=== PATIENT | female | born 1940 | race Caucasian/White ===

== ENCOUNTER 2016-08-12 02:59 | Inpatient (IN) | payer MEDICAID, MEDICARE ==
[~2016-08-12] VITALS: Ht 170.2 cm; Wt 84.8 kg
[2016-08-12 03:20] VITALS: BP_SYST 103; BP_SYST 107; BP_DIAS 47; BP_DIAS 48
--- NOTE | 2016-08-12 03:20 | NUR ---
RN NOTES RECEIVED PT FROM [facility] VIA STRETCHER ACCOMPANIED BY 3 PRN AMBULANCE CREW. PT ABLE TO AMBULATE FROM OUTSIDE THE ROOM TO THE PT'S BED SAFELY. PT IS A/O X 3. OCCITAN SPEAKING BUT ABLE TO SPEAK AND UNDERSTAND A LITTLE BIT OF MONTENEGRIN. PT WITH NO DISTRESS, NO SOB NOTED. RESPIRATION IS EVEN AND UNLABORED. WITH EVEN SMILE, NO FACIAL DROOPING NOTED AT THIS TIME, ABLE TO RAISE BOTH ARMS WITHOUT DIFFICULTY. NO SLURRED SPEECH NOTED. DENIES ANY BLURRED VISION AT THIS TIME. IV SITE ON LAC INTACT AND PATENT. NO S/S OF INFILTRATION NOTED. ALL NEEDS ATTENDED AND MET KEPT COMFORTABLE. CALL LIGHT WITHIN REACH, BODY ASSESSMENT LIBBY, SKIN IS INTACT. SAFETY PRECAUTIONS OBSERVED. WILL CONT TO MONITOR.
--- NOTE | 2016-08-12 03:45 | NUR ---
PLACED A CALL TO DR. SARATH MD AWARE THAT PT IS IN THE FLOOR ALREADY AND MED RECON DONE, STILL AWAITING FOR ADMISSION ORDERS.
[2016-08-12] MEDS ORDERED: SIMV10TA6 PO (03:58)
[2016-08-12] MEDS ORDERED: ASPI-605 PO (03:58)
[2016-08-12] MEDS ORDERED: POLY17PO20 PO (03:58)
[2016-08-12] MEDS ORDERED: ATEN25TA PO (03:58)
[2016-08-12] MEDS ORDERED: MAG355OR44 PO (03:58)
[2016-08-12] MEDS ORDERED: OMEP40CA37 PO (03:58)
[2016-08-12] MEDS ORDERED: SITA50TA PO (03:58)
[2016-08-12] MEDS ORDERED: METF500T3 PO (03:58)
[2016-08-12] MEDS ORDERED: DICL75TA5 PO (03:58)
[2016-08-12] MEDS ORDERED: ALBU6.7H INH (03:58)
[2016-08-12] MEDS ORDERED: RANI150T12 PO (03:58)
--- NOTE | 2016-08-12 05:00 | NUR ---
FF UP WITH DR. CLEMENS REGARDING THE ADMISSION ORDERS , PER MD HE'LL DO THE ORDERS.
[2016-08-12] MEDS ORDERED: ENOXAPARIN SODIUM 40 MG/0.4 ML DISP.SYRIN SQ SCH (07:00)
[2016-08-12] MEDS ORDERED: HYDROCODONE/APAP 5/325MG 1 EACH TABLET PO PRN (07:00)
[2016-08-12] MEDS ORDERED: MAG HYDROX/AL HYDROX/SIMETH 30 ML UDC PO PRN (07:00)
[2016-08-12] MEDS ORDERED: DEXTROSE 50%-WATER 50 ML DISP.SYRIN IV PRN (07:00)
[2016-08-12 07:09] VITALS: BP 121/60
--- NOTE | 2016-08-12 07:20 | NUR ---
BELT PICKER NOTES PT IN BED, RESTING COMFORTABLY AT THIS TIME, NO DISTRESS, NO SOB NOTED. A/O X2 VERBALLY RESPONSIVE. NO FACIAL DROOP, WITH EVEN SMILE AT THIS TIME. NO CHANGES SINCE PT CAME. DENIES ANY CHEST PAIN OR ANY PAIN AT THIS TIME. NO S/S OF HYPOGLYCEMIA NOTED. ALL NEEDS ATTENDED AND MET . KEPT COMFORTABLE. SAFETY PRECAUTIONS OBSERVED. WILL CONTINUE TO MONITOR. CALL LIGHT WITHIN REACH. ENDORSED TO JOSE HARPER ACCORDINGLY FOR JOYCELYN.
[2016-08-12] MEDS: BLOOD SUGAR DIAGNOSTIC 1 EACH STRIP VI SCH ×4 (07:34→21:39)
--- NOTE | 2016-08-12 07:46 | NUR ---
RN OPENING NOTES RECEIVED PATIENT IN BED, ASLEEP, HEAD OF BED ELEVATED. NO SOB OR DISTRESS NOTED. A/O X 2, PATIENT IS CONFUSED. IV INTACT AND PATENT. ON TELE MONITOR SINUS VICK 58. KEPT PATIENT CLEAN AND COMFORTABLE IN BED, CALL LIGHT WITHIN PATIENT REACH, WILL CONTINUE TO MONITOR ACCORDINGLY.
[2016-08-12] MEDS: ASPIRIN EC 81 MG TABLET.DR PO SCH (08:31)
[2016-08-12] MEDS: PANTOPRAZOLE 40 MG TABLET.DR PO SCH (08:32)
[2016-08-12] MEDS ORDERED: ATENOLOL 25 MG TABLET PO SCH (09:00)
--- NOTE | 2016-08-12 11:15 | NUR ---
RN NOTES PATIENT IS COMFORTABLE IN BED TALKING ON THE PHONE WITH NO SIGNS OF DISTRESS NOTED.
[2016-08-12] MEDS: INSULIN REGULAR, HUMAN 100 UNIT/ML 3 ML VIAL SQ PRN (12:20)
[2016-08-12 16:00] VITALS: BP 102/48
[2016-08-12 17:00] VITALS: BP 125/47
[2016-08-12] MEDS ORDERED: IV NS 0.9% 1,000 ML IV PRN (17:30)
[2016-08-12] MEDS ORDERED: SIMVASTATIN 10 MG TABLET PO SCH (18:00)
[2016-08-12 18:05] LABS: CALCIUM, SERUM 8.7 mg/dL (8.5-10.1); CARBON DIOXIDE 28 mmol/L (21-32); CHLORIDE 105 mmol/L (98-107); GLUCOSE 82 mg/dL (74-106); POTASSIUM 4.4 mmol/L (3.5-5.1); SODIUM SERUM 140 mmol/L (136-145); UREA NITROGEN, BLOOD 26 mg/dL (7-18)
--- NOTE | 2016-08-12 18:50 | NUR ---
FRENCH EDGE OPERATOR NOTES TRANSFERRED PATIENT TO 109 IN STABLE CONDITION WITH NO SIGNS OF SOB OR DISTRESS NOTED. IV INTACT AND PATENT. REPORT GIVEN TO JOSE GARCIA. CHARGE NURSE ISAAC IS AWARE.
[2016-08-12] MEDS ORDERED: IOHEXOL-350 100 ML VIAL IV ONE (18:57)
[2016-08-12] MEDS ORDERED: CT SWABBABLE VALVE TRANS SET 1 EA INFUS.SET MC ONE (18:57)
[2016-08-12] MEDS ORDERED: IV NS 0.9% 250 ML IV ONE (18:57)
--- NOTE | 2016-08-12 19:00 | NUR ---
RN NOTE Patient transferred to tele 1st floor room 109. A+ox3, Wolof speaking, understands simple concepts and questions in Italian. Patient denies pain, denies SOB. Able to obtain only VS at this time- per Charge nurse, endorse to night nurse for assessment and continuity of care. call light in reach.
--- NOTE | 2016-08-12 19:07 | NUR ---
JOE/PLATFORM WORKER CT OF BRAIN CHANGED FROM ROUTINE TO STAT, DUE TO THE CRITICAL VALUES SEEN IN THE US OF THE CAROTID WITH 65% NARROWING OF RIGHT ICA. RADIOLOGY CALLED TO CHANGE MANAGEMENT LEAD PT FOR STAT CT.
--- NOTE | 2016-08-12 19:15 | NUR ---
JOE/DEHYDRATING PRESS OPERATOR PT OFF THE FLOOR TO CT OF BRAIN WITH CHARGE NURSE, AWAIT RESULTS.
--- NOTE | 2016-08-12 19:40 | NUR ---
JOE/CLAM SHOVEL OPERATOR PT BACK FROM CT OF BRAIN WITH CHARGE NURSE CEDRIC. PT ORT TO ROOM AND CALL LIGHT, VITAL SIGNS TAKEN. PT CURRENTLY DENIES PAIN. NO SHORTNESS OF BREATH SEEN, NO DIZZINESS. PT INSTRUCTED TO CALL WITH ASSISTANCE WHEN GETTING OUT OF BED.
[2016-08-12 20:00] VITALS: BP_SYST 114; BP_SYST 148; BP_DIAS 45; BP_DIAS 68
[2016-08-12] MEDS ORDERED: IV SET PRIMARY PUMP SET 1 EA INFUS.SET MC ONE (20:20)
[2016-08-12 20:30] VITALS: BP 114/45
--- NOTE | 2016-08-12 20:50 | NUR ---
JOE/SAFETY INVESTIGATOR/CAUSE ANALYST CRITICAL RESULTS CALLED ABOUT CT OF BRAIN. 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 CHARGE NURSE AWARE OF THESE RESULTS. ALSO PLACE CALL OUT TO PRIMARY MD AND CONSULTING MD ORTEGA.
--- NOTE | 2016-08-12 21:05 | NUR ---
JOE/STRIP TANK TENDER NEURO SHANNON WAS CALLED BECAUSE SHE WAS BROUGHT IN ON A CONSULTATION. AWAITING PHONE CALL BACK.
--- NOTE | 2016-08-12 22:03 | NUR ---
JOE/TRANSIT BUS DRIVER PRIMARY MD CALLED BACK GIVE RESULTS OF CT OF BRAIN. 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 SHE WAS WAS THE PT ON ASPIRIN, AND ON BLOOD THINNER, YES. THEN SHE SAID THERE IS NO NEW ORDERS.
[2016-08-13] VITALS: BP 105/52
--- NOTE | 2016-08-13 00:10 | NUR ---
JOE/SENIOR ENGINEERING SPECIALIST SON CAME FOR A VISIT ASKED HOW HIS MOTHER WAS, GAVE A SMALL UPDATE.
[2016-08-13 04:00] VITALS: BP 111/42
[2016-08-13 06:37] LABS: BASOPHILS % (AUTO) 0.4 % (0.0-2.0); EOSINOPHILS # (AUTO) 0.1 /CMM (0.0-0.7); EOSINOPHILS % (AUTO) 2.2 % (0.0-6.0); HEMATOCRIT 31 % (33-45); HEMOGLOBIN 10.5 g/dL (11.5-14.8); LYMPHOCYTES # (AUTO) 2.3 /CMM (0.8-4.8); LYMPHOCYTES % (AUTO) 44.7 % (20.0-44.0); MEAN CORPUSCULAR HEMOGLOBIN 33 PG (26.0-33.0); MEAN CORPUSCULAR HGB CONC 34 g/dl (31.0-36.0); MEAN CORPUSCULAR VOLUME 97 fL (82-100); MONOCYTES # (AUTO) 0.3 /CMM (0.1-1.30); MONOCYTES % (AUTO) 5.2 % (2.0-12.0); NEUTROPHILS # (AUTO) 2.4 /CMM (1.8-8.9); NEUTROPHILS % (AUTO) 47.5 % (43.0-81.0); PLATELET COUNT (AUTO) 171 /CMM (150-450); RDW COEFFICIENT OF VARIATION 13.1 (11.5-15.0); RED BLOOD CELL COUNT(AUTO) 3.14 MIL/uL (4.0-5.2)
[2016-08-13 07:10] LABS: CALCIUM, SERUM 8.7 mg/dL (8.5-10.1); CARBON DIOXIDE 26 mmol/L (21-32); CHLORIDE 108 mmol/L (98-107); GLUCOSE 102 mg/dL (74-106); MAGNESIUM 1.7 mg/dL (1.8-2.4); PHOSPHORUS 3.9 mg/dL (2.5-4.9); POTASSIUM 4.4 mmol/L (3.5-5.1); SODIUM SERUM 144 mmol/L (136-145); UREA NITROGEN, BLOOD 21 mg/dL (7-18)
[2016-08-13 07:20] LABS: CHOLESTEROL 236 mg/dL (<200); HDL CHOLESTEROL 40 mg/dL (40-60); LDL 134 mg/dL (0-99); TRIGLYCERIDES 197 mg/dL (30-150)
[2016-08-13] MEDS: BLOOD SUGAR DIAGNOSTIC 1 EACH STRIP VI SCH ×4 (07:30→21:53)
[2016-08-13 08:00] VITALS: BP 160/59
[2016-08-13] MEDS: ASPIRIN EC 81 MG TABLET.DR PO SCH (10:21)
[2016-08-13] MEDS: PANTOPRAZOLE 40 MG TABLET.DR PO SCH (10:21)
[2016-08-13] MEDS: ENOXAPARIN SODIUM 40 MG/0.4 ML DISP.SYRIN SQ SCH (10:24)
[2016-08-13 10:32] LABS: ALBUMIN 3.3 g/dL (3.4-5.0); BILIRUBIN,TOTAL 0.2 mg/dL (0.2-1.0); TOTAL PROTEIN, SERUM 6.9 g/dL (6.4-8.2)
[2016-08-13] MEDS: IV NS 0.9% 1,000 ML IV PRN (10:51)
[2016-08-13 12:00] VITALS: BP 112/45
[2016-08-13] MEDS: Magnesium 1GM/D5W 100ML PREMIX 100 ML IV SCH ×2 (13:43→21:57)
[2016-08-13 16:00] VITALS: BP 112/45
[2016-08-13 16:03] LABS: THYROID STIMULATING HORMONE 2.498 uIU/mL (0.358-3.74)
--- NOTE | 2016-08-13 19:30 | NUR ---
JOE RN NOTE PT GAVE CONSENTS FOR AM PROCEDURE.
--- NOTE | 2016-08-13 19:37 | NUR ---
diabetic patient with AC/HS blood sugar checks; am blood sugar 102; no coverage needed; afternoon blood sugar not performed as patient off unit for MRI; evening blood sugar 121; no coverage needed.
[2016-08-13 20:00] VITALS: BP 113/41
--- NOTE | 2016-08-13 20:00 | NUR ---
JOE RN NOTE PT IN BED SITTING UP. A/O X 3, [place] SPEAKING, UNDERSTAND LITTLE ETHIOPIAN. NO DISTRESS OR DISCOMFORT NOTED. DENIES PAIN. IVF NS INFUSING AT 75 ML/HR, NO S/S OF INFILTRATION NOTED. ON TELE SR HR 63. CONTINUE ON NEURO CHECK. PT DENIES ANY WEAKNESS OR BLURRED VISION. SIDE RAILS UP X 2 AND CALL LIGHT WITHIN REACH. VSS. CONTINUE TO MONITOR HER.
--- NOTE | 2016-08-13 20:05 | NUR ---
JOE RN NOTE DAY SHIFT NURSE INFORMED ME THAT SHE GAVE ONLY ONE BAG OF MAG 1G. INFORMED CHARGE NURSE SULEMAN. WILL GIVE SECOND BAG LATER DUE TO CHARGE WILL RECHECK THE ORDER.
--- NOTE | 2016-08-13 21:00 | NUR ---
JOE RN NOTE INFORMED CHARGE NURSE MAG LEVEL IS 2.0. SECOND BAG GIVEN BY CHARGE NURSE AND INFUSE IT ORDERED.
--- NOTE | 2016-08-13 21:30 | NUR ---
JOE RN NOTE PT IS C/O CONSTIPATION, MOM 30 ML PO GIVEN. CONTINUE TO MONITOR HER.
[2016-08-13] MEDS: ATORVASTATIN 40 MG TABLET PO SCH (21:43)
[2016-08-13] MEDS: MAGNESIUM HYDROXIDE 30 ML UDC PO PRN (21:43)
[2016-08-13] MEDS: METOPROLOL TARTRATE 25 MG TABLET PO SCH (21:53)
[2016-08-13] MEDS ORDERED: Magnesium 1GM/D5W 100ML PREMIX 100 ML IV ONE (21:53)
[2016-08-14] VITALS (15 sets, daily range): BP systolic 115–159; BP diastolic 39–80
[2016-08-14] MEDS ORDERED: IV NS 0.9% 1,000 ML BAG IV SCH
--- NOTE | 2016-08-14 | NUR ---
JOE RN NOTE PT IS NPO EXCEPT MEDS. REMINDED PT NOT TO EAT OR DRINK AFTER MIDNIGHT. PT STATES "OK".
[2016-08-14] MEDS: IV NS 0.9% 1,000 ML IV PRN (05:55)
[2016-08-14] MEDS: BLOOD SUGAR DIAGNOSTIC 1 EACH STRIP VI SCH ×4 (06:01→21:15)
--- NOTE | 2016-08-14 06:25 | NUR ---
JOE RN NOTE PT IN BED AWAKE. NO DISTRESS OR DISCOMFORT NOTED. DENIES PAIN. IVF INFUSING WELL, NO S/S OF INFILTRATION NOTED. ON TELE SB 58. SIDE RAILS UP X 2 AND CALL LIGHT WITHIN REACH. WILL ENDORSE TO DAY SHIFT NURSE FOR CONTINUE TO CARE.
[2016-08-14 07:05] LABS: INR 0.89 (0.87-1.13); PROTHROMBIN TIME 9.5 SECS (9.5-12.7)
--- NOTE | 2016-08-14 07:30 | NUR ---
INITIAL NOTE RESTING IN BED, DENIES PAIN. NO SOB. VERBALIZES NEEDS. ROOM AIR. AMBULATORY, STEADY GAIT. NPO, PLAN FOR SURGERY IN AFTERNOON- DISCUSSED PLAN OF CARE. R HAND IV NO COMPLICATIONS. CALL LIGHT IN REACH,
[2016-08-14 07:51] LABS: BASOPHILS % (AUTO) 0.4 % (0.0-2.0); EOSINOPHILS # (AUTO) 0.1 /CMM (0.0-0.7); HEMATOCRIT 33 % (33-45); HEMOGLOBIN 11.3 g/dL (11.5-14.8); LYMPHOCYTES # (AUTO) 2.3 /CMM (0.8-4.8); LYMPHOCYTES % (AUTO) 46.1 % (20.0-44.0); MEAN CORPUSCULAR HEMOGLOBIN 33 PG (26.0-33.0); MEAN CORPUSCULAR HGB CONC 34 g/dl (31.0-36.0); MEAN CORPUSCULAR VOLUME 97 fL (82-100); MONOCYTES # (AUTO) 0.2 /CMM (0.1-1.30); MONOCYTES % (AUTO) 4.9 % (2.0-12.0); NEUTROPHILS # (AUTO) 2.3 /CMM (1.8-8.9); NEUTROPHILS % (AUTO) 46.6 % (43.0-81.0); PLATELET COUNT (AUTO) 112 /CMM (150-450); RDW COEFFICIENT OF VARIATION 13.4 (11.5-15.0); RED BLOOD CELL COUNT(AUTO) 3.41 MIL/uL (4.0-5.2)
[2016-08-14 08:00] LABS: CALCIUM, SERUM 8.9 mg/dL (8.5-10.1); CARBON DIOXIDE 29 mmol/L (21-32); CHLORIDE 107 mmol/L (98-107); CREATININE 0.9 mg/dL (0.6-1.3); GLUCOSE 116 mg/dL (74-106); MAGNESIUM 2.5 mg/dL (1.8-2.4); PHOSPHORUS 3.6 mg/dL (2.5-4.9); POTASSIUM 4.6 mmol/L (3.5-5.1); SODIUM SERUM 142 mmol/L (136-145); UREA NITROGEN, BLOOD 16 mg/dL (7-18)
[2016-08-14] MEDS: ASPIRIN EC 81 MG TABLET.DR PO SCH (09:53)
[2016-08-14] MEDS: PANTOPRAZOLE 40 MG TABLET.DR PO SCH (09:53)
[2016-08-14] MEDS: ENOXAPARIN SODIUM 40 MG/0.4 ML DISP.SYRIN SQ SCH (09:53)
[2016-08-14] MEDS: METOPROLOL TARTRATE 25 MG TABLET PO SCH ×2 (09:54→21:16)
--- NOTE | 2016-08-14 12:57 | NUR ---
npo continued, receiving iv fluids. monitoring patient closely, assessing needs using quality assurance calibrator phone. patient denies discomfort thus far. pending surgery, eta 1600
[2016-08-14] MEDS ORDERED: THROMBIN (BOVINE) 5,000 UNITS VIAL TP ONE (13:01)
[2016-08-14] MEDS ORDERED: LIDOCAINE HCL/PF 1% 30 ML SDV ONE (13:01)
[2016-08-14] MEDS ORDERED: GELATIN SPONGE,ABSORBABLE 1 EA SPONGE TP ONE (13:01)
[2016-08-14] MEDS ORDERED: HEPARIN SODIUM, PORCINE 1,000 UNIT/ML VIAL ONE (13:01)
[2016-08-14] MEDS ORDERED: FENTANYL PF 100MCG/2ML AMPUL ONE (13:04)
[2016-08-14] MEDS ORDERED: ROCURONIUM BROMIDE 50 MG/5 ML ONE (13:05)
[2016-08-14] MEDS ORDERED: MIDAZOLAM HCL 2 MG/2ML VIAL ONE (13:05)
--- NOTE | 2016-08-14 14:00 | NUR ---
LEFT TO SURGERY ACCOMPANIED BY OR TEAM
[2016-08-14] MEDS ORDERED: CELLULOSE,OXIDIZED 1 EA PACK MC ONE (15:35)
[2016-08-14] MEDS ORDERED: BACITRACIN 50000 UNITS/VIAL ONE (15:39)
[2016-08-14] MEDS ORDERED: BUPIVACAINE 0.5 % PF 150 MG/30 ML VIAL ONE (16:33)
[2016-08-14] MEDS ORDERED: NICARDIPINE IN DEXTROSE,ISO-OS 200 ML IV PRN (17:00)
[2016-08-14] MEDS ORDERED: CLONIDINE HCL 0.1 MG TABLET PO PRN (17:00)
[2016-08-14 17:21] LABS: BASOPHILS % (AUTO) 0.2 % (0.0-2.0); EOSINOPHILS # (AUTO) 0.1 /CMM (0.0-0.7); EOSINOPHILS % (AUTO) 0.8 % (0.0-6.0); HEMATOCRIT 32 % (33-45); HEMOGLOBIN 10.8 g/dL (11.5-14.8); LYMPHOCYTES # (AUTO) 1.4 /CMM (0.8-4.8); MEAN CORPUSCULAR HEMOGLOBIN 33 PG (26.0-33.0); MEAN CORPUSCULAR HGB CONC 34 g/dl (31.0-36.0); MEAN CORPUSCULAR VOLUME 97 fL (82-100); MONOCYTES # (AUTO) 0.1 /CMM (0.1-1.30); MONOCYTES % (AUTO) 0.9 % (2.0-12.0); NEUTROPHILS # (AUTO) 6.4 /CMM (1.8-8.9); NEUTROPHILS % (AUTO) 81.1 % (43.0-81.0); PLATELET COUNT (AUTO) 178 /CMM (150-450); RDW COEFFICIENT OF VARIATION 13.1 (11.5-15.0); RED BLOOD CELL COUNT(AUTO) 3.28 MIL/uL (4.0-5.2); WHITE BLOOD COUNT (AUTO) 7.9 K/uL (4.3-11.0)
--- NOTE | 2016-08-14 17:30 | NUR ---
ICU NOTE RETURNED FROM SURGERY AT THIS TIME. VS RECORDED IN DATA SCOPE- STABLE, BP 155/66. PATIENT ABLE TO VOICE NEEDS. BREATHING EVEN AND UNLABORED- 3L O2, SAT 100%, PLAN TO WEAN TOLERATED. DRESSING ON L CAROTID WITH 3X3 SEROSANGEOUS SOILING, DRESSING INTACT. JOSESITO DRAIN AT CAROTID SITE DRAINING SEROSANGEOUS FLUID. ARTERIAL LINE IN R RADIAL ARTERY INTACT, ZEROED TO ATMOSPHERIC PRESSURE, BEDSIDE MONITOR CHECKED FOR SETTINGS, ACCURACY AND ALARMS WITH 2 ICU NURSES. NEW ORDERS FAXED TO PHARM AND INPUT IN [facility] PER MD LEMON. CALL LIGHT IN REACH.
[2016-08-14 17:32] LABS: CALCIUM, SERUM 8.1 mg/dL (8.5-10.1); CARBON DIOXIDE 26 mmol/L (21-32); CHLORIDE 108 mmol/L (98-107); GLUCOSE 232 mg/dL (74-106); POTASSIUM 4.9 mmol/L (3.5-5.1); SODIUM SERUM 141 mmol/L (136-145); UREA NITROGEN, BLOOD 19 mg/dL (7-18)
[2016-08-14] MEDS: DEXAMETHASONE SOD PHOSPHATE 4 MG/ML VIAL IV SCH (18:07)
[2016-08-14] MEDS: HYDROCODONE/APAP 5/325MG 1 EACH TABLET PO PRN (18:59)
[2016-08-14] MEDS: *INSULIN REGULAR(HUMULIN R)HUM 100 UNIT/ML VIAL SQ PRN ×2 (19:00→21:14)
--- NOTE | 2016-08-14 19:15 | NUR ---
CLOSING NOTE HANDED OFF REPORT TO NIGHT NURSE FOR CONTINUITY OF CARE. NO ACUTE CHANGES SINCE RETURNING FROM OR. PATIENT REQUESTING PAIN MEDICATION- ADMINISTERED. CALL LIGHT IN REACH
--- NOTE | 2016-08-14 20:00 | NUR ---
RN NOTES RECEIVED PX ASLEEP, VERY EASILY AROUSABLE, WITH FAMILY AT BEDSIDE, ON NC AT 2 LPM, RIGHT RADIAL ARTERIAL LINE TO MONITOR WITH GOOD A LINE WAVE; IV ACCESS PATENT, INTACT, FLUSHED; WITH LEFT NECK DRESSING, 50% SOAKED SANGUINOUS, CONNECTED TO JOSESITO DRAIN ON NEGATIVE PRESSURE, MARKED SOAKED DRESSING FOR EXPANSION OF BLOODY SECRETION, WILL RECHECK IN AN HOUR; PX MOVES BY SELF, DENIED CHANGES IN SENSATION, MOTOR ASPECTS INTACT, ORIENTED X 3, PX HAS HEADACHE 4/10, WAS GIVEN NORCO EARLIER; TOLERATED SIPS OF SOUP AND JELL-O, DENIED NAUSEA OR VOMITING. DENIED SOB, DIZZINESS. DISCUSSED PLAN OF CARE, DISCUSSED NEED FOR FREQUENT NEURO MONITORING, FAMILY HELPED WITH INTERPRETING ON SIMPLE NON TECHNICAL DISCUSSIONS.
[2016-08-14] MEDS: ATORVASTATIN 40 MG TABLET PO SCH (21:15)
[2016-08-14] MEDS: ANCEF 1 GM/50 ML D5W IV SCH ×2 (21:16)
[2016-08-14] MEDS ORDERED: SECONDARY IV SET 1 EA INFUS.SET MC ONE (21:16)
[2016-08-14] MEDS: ACETAMINOPHEN 325 MG TABLET PO PRN (21:32)
--- NOTE | 2016-08-14 21:59 | NUR ---
RN NOTES DUE MEDS GIVEN, HEALTH TEACHING DONE REGARDING NEED TO CONTROL BLOOD SUGAR, BLOOD PRESSURE, CHOLESTEROL AND S/SX OF STROKE. BP WNL, COMPLAINED OF 5/10 HEADACHE, THROBBING, TYLENOL GIVEN, REFUSED TO TAKE MORPHINE AT THIS TIME; BLOOD-SOAKED DRESSING ON THE LEFT NECK HAS GONE OVER THE MARKED LINE BY ABOUT 3 MM, REINFORCED DRESSING. INFORMED NEED FOR FREQUENT MONITORING OF THE DRESSING. FAMILY AND PATIENT ALL AT BEDSIDE.
[2016-08-14] MEDS: ONDANSETRON HCL/PF 4 MG/2 ML VIAL IVP PRN (22:28)
[2016-08-14] MEDS: MORPHINE SULFATE INJ 2 MG/ML DISP.SYRIN IV PRN (22:39)
--- NOTE | 2016-08-14 22:40 | NUR ---
RN NOTES PX COMPLAINED OF NAUSEA WITH VOMITING OF 1 TBSP OF JELL-O, AIRWAY PROTECTED, ZOFRAN GIVEN. AFTER WHICH PX COMPLAINED OF HEADACHE ACHING 7/10, MORPHINE 1 MG IV GIVEN PER PATIENT REQUEST; FAMILY UPDATED ON PX CONDITION.
[2016-08-15] VITALS (16 sets, daily range): BP systolic 105–154; BP diastolic 34–65
[2016-08-15] MEDS: DEXAMETHASONE SOD PHOSPHATE 4 MG/ML VIAL IV SCH (00:04)
[2016-08-15] MEDS: IV NS 0.9% 1,000 ML IV PRN (00:56)
--- NOTE | 2016-08-15 01:00 | NUR ---
RN NOTES LEFT NECK DRESSING ALREADY OFF SKIN, REINFORCED, INCISION SITE APPROXIMATED, NO REDNESS, NO BRUISING AROUND THE AREA, JOSESITO DRAIN INTACT.
[2016-08-15 04:53] LABS: BASOPHILS % (AUTO) 0.2 % (0.0-2.0); HEMATOCRIT 31 % (33-45); HEMOGLOBIN 10.5 g/dL (11.5-14.8); LYMPHOCYTES # (AUTO) 0.6 /CMM (0.8-4.8); LYMPHOCYTES % (AUTO) 7.3 % (20.0-44.0); MEAN CORPUSCULAR HEMOGLOBIN 33 PG (26.0-33.0); MEAN CORPUSCULAR HGB CONC 34 g/dl (31.0-36.0); MEAN CORPUSCULAR VOLUME 97 fL (82-100); MONOCYTES # (AUTO) 0.1 /CMM (0.1-1.30); MONOCYTES % (AUTO) 1.4 % (2.0-12.0); NEUTROPHILS % (AUTO) 91.1 % (43.0-81.0); PLATELET COUNT (AUTO) 193 /CMM (150-450); RDW COEFFICIENT OF VARIATION 12.9 (11.5-15.0); RED BLOOD CELL COUNT(AUTO) 3.14 MIL/uL (4.0-5.2); WHITE BLOOD COUNT (AUTO) 7.7 K/uL (4.3-11.0)
--- NOTE | 2016-08-15 05:16 | NUR ---
RN NOTES PLACED PX BACK ON NC O2 SAT DECREASED TO 89 WHILE SHE WAS SLEEPING, WHEN AWAKE IT WENT BACK UP TO 94%.
[2016-08-15 05:18] LABS: CALCIUM, SERUM 8.2 mg/dL (8.5-10.1); CARBON DIOXIDE 25 mmol/L (21-32); CHLORIDE 107 mmol/L (98-107); CREATININE 0.9 mg/dL (0.6-1.3); GLUCOSE 170 mg/dL (74-106); SODIUM SERUM 140 mmol/L (136-145); UREA NITROGEN, BLOOD 19 mg/dL (7-18)
[2016-08-15] MEDS: ANCEF 1 GM/50 ML D5W IV SCH ×2 (06:18)
--- NOTE | 2016-08-15 06:24 | NUR ---
RN NOTES CONDITION AND NEURO STATUS UNCHANGED; EARLY AM CARE RENDERED, CHANGED GOWN AND BED LINENS, NO SKIN BREAKDOWN, PX DENIED PAIN, SOB, N/V; ARTERIAL LINE RECALIBRATED WITH GOOD WAVE LINE. IV ACCESS FLUSHED PATENT INTACT; BP WNL, WILL ENDORSE TO NEXT RN.
[2016-08-15] MEDS: ONDANSETRON HCL/PF 4 MG/2 ML VIAL IVP PRN (06:42)
--- NOTE | 2016-08-15 06:45 | NUR ---
RN NOTES PX REPORTED TO BE NAUSEATED, ZOFRAN GIVEN, KIDNEY BASIN AT BEDSIDE, WILL HOLD OFF INSULIN FOR NOW.
[2016-08-15] MEDS: BLOOD SUGAR DIAGNOSTIC 1 EACH STRIP VI SCH ×4 (06:46→21:03)
--- NOTE | 2016-08-15 07:18 | NUR ---
RN NOTES REPORT TO CHARLIE GARCIA FOR CONTINUITY OF CARE.
--- NOTE | 2016-08-15 08:00 | NUR ---
SONAR SUBSYSTEM EQUIPMENT OPERATOR NOTE: RECEIVED PATIENT ASLEEP, EASILY AROUSABLE, ON NC AT 2 LPM, RIGHT RADIAL ARTERIAL LINE TO MONITOR WITH GOOD A LINE WAVE; IV ACCESS PATENT, INTACT, FLUSHED; WITH LEFT NECK DRESSING,CONNECTED TO JOSESITO DRAIN ON NEGATIVE PRESSURE, NOTED WITH SANGUINOUS DRAINAGE. PATIENT ABLE TO MOVE SELF. PIV RUNNIDN NS AT 75ML/HR. ALL NEEDS MET, SAFETY MAINTAINED. CALL LIGHT WITHIN REACH ONGOING MONITORING
[2016-08-15] MEDS: PANTOPRAZOLE 40 MG TABLET.DR PO SCH (08:19)
[2016-08-15] MEDS: ENOXAPARIN SODIUM 40 MG/0.4 ML DISP.SYRIN SQ SCH (08:21)
[2016-08-15] MEDS: ASPIRIN EC 81 MG TABLET.DR PO SCH (08:21)
[2016-08-15] MEDS: METOPROLOL TARTRATE 25 MG TABLET PO SCH ×2 (08:23→21:00)
--- NOTE | 2016-08-15 09:30 | NUR ---
OFFICE MESSENGER HELPER NOTE: DR. ELMON AT BEDSIDE. JOSESITO DRAIN REMOVED, DRESSING IN LEFT NECK CHANGED BY MD. RECEIVED ORDERS FOR OK TO D/C, CHANGE DRESSING IN 3 DAYS, SHOWER IN 3 DAYS, AND SEE DR. LEMON IN OFFICE IN TWO WEEKS. OFFICE WILL MAKE APPT FOR PATIENT. FAMILY MADE AWARE. PATIENT TOLERATED REMOVAL OF JOSESITO DRAIN WELL. ONGOING MONITORING
[2016-08-15] MEDS ORDERED: LACTULOSE 10 G/15 ML UDC (PYXIS) PO ONE (12:00)
[2016-08-15] MEDS: INSULIN REGULAR, HUMAN 100 UNIT/ML 3 ML VIAL SQ PRN (13:03)
--- NOTE | 2016-08-15 14:30 | NUR ---
METER TECHNICIAN NOTE: PATIENT CURRENTLY MEDSURG STATUS, ABLE TO AMBULATE IN UNIT, IV FLUIDS D/KAYDEN. VS STABLE. NO DISTRESS NOTED. PATIENT DENIES PAIN. PLAN FOR D/C TOMORROW. REPORT GIVEN TO STACEY GARCIA FOR CONTINUITY OF CARE.
--- NOTE | 2016-08-15 19:30 | NUR ---
MS RN INITIAL NOTE RECEIVED REPORT FROM STACEY GARCIA. PT UP IN BATHROOM. A/A/O X3-4. AMBULATORY WITH BRP. LUNG SOUNDS CLEAR. BOWEL SOUNDS PRESENT. IV PATENT AND INTACT. PULSES PRESENT IN ALL EXTREMITIES. BED IN LOW LOCKED POSITION, CALL LIGHT WITHIN REACH. WILL CONTINUE TO MONITOR.
[2016-08-15] MEDS: MAGNESIUM HYDROXIDE 30 ML UDC PO PRN (20:59)
[2016-08-15] MEDS: ATORVASTATIN 40 MG TABLET PO SCH (21:03)
[2016-08-16 04:00] VITALS: BP 126/55
[2016-08-16] MEDS: MORPHINE SULFATE INJ 2 MG/ML DISP.SYRIN IV PRN ×3 (04:25→20:07)
[2016-08-16 04:34] VITALS: BP 126/85
--- NOTE | 2016-08-16 07:12 | NUR ---
RN INITIAL NOTES: REC'D PT ASLEEP ON BED, NOT IN ANY FORM OF DISTRESS, EASILY AROUSABLE, A/O X3. ON ROOM AIR, NO SOB. L NECK SX DRESSING CLEAN & DRY, NO C/O PAIN/ DISCOMFORT. IV LINE ACCESS: R HAND G20, R WRIST G22, BOTH FLUSHED, PATENT & INTACT. PROVIDED COMFORT & SAFETY MEASURES. CALL LIGHT PLACED W/IN REACH. BED KEPT LOW & IN LOCKED POS. WILL CONTINUE TO MONITOR. Addendum: 08/16/16 at 0758 by PEPE MAR RN CORRECTION ON L NECK SX DRESSING CLEAN & DRY, NO C/O PAIN/ DISCOMFORT: NOTED MODERATE DRY RED SEROSANGUINEOUS DRAINAGE ON L NECK SX DRESSING, C/O PAIN 09/21.
[2016-08-16 08:00] VITALS: BP 128/48
[2016-08-16] MEDS: ACETAMINOPHEN 325 MG TABLET PO PRN (08:26)
[2016-08-16] MEDS: PANTOPRAZOLE 40 MG TABLET.DR PO SCH (08:26)
[2016-08-16] MEDS: METOPROLOL TARTRATE 25 MG TABLET PO SCH ×2 (08:27→21:25)
[2016-08-16] MEDS: BLOOD SUGAR DIAGNOSTIC 1 EACH STRIP VI SCH ×4 (08:31→21:32)
[2016-08-16] MEDS: *INSULIN REGULAR(HUMULIN R)HUM 100 UNIT/ML VIAL SQ PRN ×3 (08:33→21:33)
[2016-08-16] MEDS: ASPIRIN EC 81 MG TABLET.DR PO SCH (08:34)
[2016-08-16] MEDS: ENOXAPARIN SODIUM 40 MG/0.4 ML DISP.SYRIN SQ SCH ×2 (08:34→08:59)
--- NOTE | 2016-08-16 11:00 | NUR ---
RN NOTES: PT SEEN & EXAMINED BY DANYA PENDLETON. INFORMED HIM RE: LOW GRADE FEVER THIS AM AND SHOWED TO HIM THE DRESSING ON THE SX SITE W/ ORDERS TO REINFORCE THE DRESSING UPON DC. VERIFIED IF PT NEEDS ANTICOAGULANT, PER KEERTHI, NO NEED PT IS SINUS RHYTHM NOT AFIB.
--- NOTE | 2016-08-16 12:00 | NUR ---
RN NOTES: PT VERBALIZED THAT SHE DOESN'T WANT TO GO HOME TODAY SHE STILL FEELS WEAK. KEERTHI MADE AWARE. AWAITING FOR RESPONSE.
--- NOTE | 2016-08-16 14:00 | NUR ---
JOSE NOTES: PT SON IS CONCERNED ABOUT SCHEDULED DC TODAY. SON WAS ABLE TO TALK TO DANYA PENDLETON AT BEDSIDE W/ ORDERS TO LET PT STAY TODAY PT LIVES ALONE AT HOME. Addendum: 08/16/16 at 1531 by PEPE MAR RN ADDENDUM: PT FOR DC TOMORROW 08/17/16 PER DANYA PENDLETON.
[2016-08-16 16:00] VITALS: BP 132/57
[2016-08-16] MEDS: INSULIN REGULAR, HUMAN 100 UNIT/ML 3 ML VIAL SQ PRN (17:42)
--- NOTE | 2016-08-16 17:45 | NUR ---
RN NOTES: ACCUCHECKS FOR THE FOLLOWING TIME 0730h - 137 MG/DL = 2 UNITS HUMULIN R GIVEN. 1230h - 153 MG/DL = 2 UNITS HUMULIN R GIVEN. 1730h - 142 MG/DL = 2 UNITS HUMULIN R GIVEN.
--- NOTE | 2016-08-16 18:29 | NUR ---
08/16/16 PT WILL DC HOME TODAY, SPOKE WITH BAYRON HEARD [phone] HE WILL PEANUT SHAKER PT AROUND 8PM. PER KEERTHI SENIOR ENERGY CONSULTANT ARRANGE [facility] FOR PT AND NURSING, ARRANGED WITH ASSISTED [facility] [phone], BAYRON AGREED WITH PLAN. Addendum: 08/16/16 at 1830 by SHIRA JOHNSON CMG Amended: Links added.
--- NOTE | 2016-08-16 19:10 | NUR ---
RN CLOSING NOTES: NO ACUTE CHANGES NOTED W/IN SHIFT. PT IS A/OX3, GCS15, NO SOB WHILE ON ROOM AIR. NO ACTIVE BLEEDING NOTED ON THE LEFT NECK SX SITE. DRESSING HAS DRY POST OP RED DRAINAGE, MOD AMOUNT. IV LINE ACCESS KEPT PATENT & INTACT. PT ABLE TO AMBULATE TO BATHROOM W/ STEADY GAIT. CONFIRMED W/ SHIRA RENE THAT PT TO DC TO HOME W/ HOME HEALTH ([facility]# [phone]) TOMORROW 08/17/16. KEPT WELL RESTED. NEEDS ATTENDED. CALL LIGHT PLACED W/IN REACH. BED KEPT LOW & IN LOCKED POSITION. ENDORSED TO PM RN FOR JOYCELYN.
--- NOTE | 2016-08-16 19:30 | NUR ---
MS RN INITIAL NOTE 1929- RECEIVED REPORT FROM PEPE GARCIA. UPON ASSESSMENT OF PT, PT APPEARED PALE, MORE LETHARGIC THAN YESTERDAY. SATURATING 91% ON RA, APPLIED NC 2L. BLOOD PRESSURE STABLE 120'S. BS 183. PT IS PRIMARILY ROMANIAN SPEAKING, WITH VERY LITTLE LITHUANIAN. 1999- REQUESTED ASSOCIATE DIRECTOR QA JAZZ TO ASSESS AND HELP WITH TRANSLATION. PT SPEECH SEEMED MORE APPROPRIATE WHEN SPEAKING WITH JAZZ, HER O2 97% ON 2L NC. JAZZ INSTRUCTED TO ADMINISTER ORDERED PAIN MEDICATION, PT COMPLAINING OF MORE PAIN TODAY 09/21. ALSO INSTRUCTED TO PROVIDE AN I/S FOR BREATHING, PT IS A ONE PACK A DAY SMOKER.
[2016-08-16 20:00] VITALS: BP 121/52
--- NOTE | 2016-08-16 20:35 | NUR ---
MS RN PAIN MEDICATION EFFECTIVE. PT RESTING MORE COMFORTABLY. WILL CONTINUE TO MONITOR.
[2016-08-16] MEDS: ATORVASTATIN 40 MG TABLET PO SCH (21:24)
[2016-08-17] VITALS: BP 120/50
[2016-08-17] MEDS: MORPHINE SULFATE INJ 2 MG/ML DISP.SYRIN IV PRN ×2 (00:27→08:31)
--- NOTE | 2016-08-17 00:57 | NUR ---
MS RN NOTE PAIN MEDICATION EFFECTIVE. PATIENT SLEEPING COMFORTABLY IN BED.
[2016-08-17 04:00] VITALS: BP 123/73
[2016-08-17] MEDS: HYDROCODONE/APAP 5/325MG 1 EACH TABLET PO PRN (05:43)
[2016-08-17] MEDS: MAGNESIUM HYDROXIDE 30 ML UDC PO PRN (05:43)
[2016-08-17] MEDS: BLOOD SUGAR DIAGNOSTIC 1 EACH STRIP VI SCH ×2 (07:30→11:33)
--- NOTE | 2016-08-17 07:50 | NUR ---
MS RN INITIAL NOTE PT IN BED. A/A/O X3-4. AMBULATORY WITH BRP. LUNG SOUNDS CLEAR. BOWEL SOUNDS PRESENT. IV PATENT AND INTACT. PULSES PRESENT IN ALL EXTREMITIES. NO CHANGES IN LOC NO CONFUSION NOTED NO SOB, NO WEAKNESS PT STATES PRESENTS OF PAIN AND STATES SHE WOULD LIKE PAIN MEDICATION WITH HER MORNING MEDICATION NURSING STAFF WILL ADMINISTER NOTED BED IN LOW LOCKED POSITION, CALL LIGHT WITHIN REACH. RN WILL CONTINUE TO MONITOR.
[2016-08-17 08:00] VITALS: BP 105/45
[2016-08-17] MEDS: PANTOPRAZOLE 40 MG TABLET.DR PO SCH (08:32)
[2016-08-17] MEDS: ASPIRIN EC 81 MG TABLET.DR PO SCH (08:32)
[2016-08-17] MEDS: ENOXAPARIN SODIUM 40 MG/0.4 ML DISP.SYRIN SQ SCH (08:42)
[2016-08-17 08:43] VITALS: BP 105/45
[2016-08-17] MEDS: METOPROLOL TARTRATE 25 MG TABLET PO SCH (08:43)
[2016-08-17] MEDS: INSULIN REGULAR, HUMAN 100 UNIT/ML 3 ML VIAL SQ PRN ×2 (08:50→11:31)
--- NOTE | 2016-08-17 09:00 | NUR ---
RN NOTE PATIENT GIVEN PHONE TO CONTACT FAMILY MEMBERS. PATIENT PERSONAL PHONE NOT WORKING. PT ASSISTED WITH DIALING NUMBERS
--- NOTE | 2016-08-17 10:52 | NUR ---
RN NOTE DANYA CHAVEZ CONTACTED TO SPEAK WITH THE FAMILY IN REGARDS TO POSSIBLE DISCHARGE. SON HAS LEFT NUMBER ON THE PATIENT BOARD. RN WILL CONTINUE TO FOLLOW
--- NOTE | 2016-08-17 13:47 | NUR ---
JOSE MCDERMOTT CAME AND SPOKE WITH PATIENTS DAUGHTER IN REGARDS TO PLAN . PATIENT STILL CURRENTLY ON 8MG/ML NO DISTRESS NOTED . PATIENT HAS AGONAL BREATHING. AND GURGLING NOISE NOTED RT CONTACTED IN REGARDS TO SUCTIONING , PATIENT FAMILY STATES THE PREFER NOT TO PROCEED WITH INVASIVE SUCTIONING. BALDEMAR HAGAN STATES WE MAY INCREASE MORPHINE TO 9MG/ML RN WILL CONTINUE TO FOLLOW Addendum: 08/17/16 at 1517 by MANJEET SÁNCHEZ RN documented under the wrong patient please disregard
--- NOTE | 2016-08-17 13:47 | NUR ---
RN note RN spoke with patient and went over discharge paperwork with the patient the patient verbalized understanding of the discharge instruction . DANYA CHAVEZ WENT IN AND EXPLAINED DISCHARGE WITH THE PATIENT , PATIENT DRESSING HAS BEEN CHANGED NO ISSUES OR CONCERNS NOTED. PATIENT STATES THAT HER SON WILL BE COMING AT 1600 FOR HER DISCHARGE.
--- NOTE | 2016-08-17 16:17 | NUR ---
RN NOTE PATIENT DAUGHTER IN LAW HERE TO CARGO ROUTER PATIENT FOR DISCHARGE PATIENT AND FAMILY VERBALIZES UNDERSTANDING OF PLAN OF CARE AND DISCHARGE INSTRUCTIONS. IVS REMOVED NAME BADGE REMOVED PATIENT STABLE NO ISSUES NOTED
--- NOTE | 2016-08-17 16:47 | NUR ---
RN NOTES PATIENT DISCHARGED RN WALKED PATIENT TO THE CAR MEDICATION RETURNED TO PATIENT AND DAUGHTER IN LAW FROM PHARMACY NO ISSUES PRESENT NO CONCERNS PRESENT. CHARGE NURSE NOTIFIED
== END 2016-08-17 16:49 | disposition home or self-care (01) | DRG 24 ==
LOC: TELE 02:59 → TELE1 18:56 → TELE-TD 19:14 → ICUOV 08-14 17:08 → MEDSG1 08-15 11:36
PROVIDERS: ADMIT Internal Medicine; ATTEND Internal Medicine
PROC: 03CL0ZZ Extirpation of Matter from Left Internal Carotid Artery, Open Approach (ICD-10-PCS; principal; 2016-08-15)
DX: G45.9 Transient cerebral ischemic attack, unspecified (principal); J44.9 Chronic obstructive pulmonary disease, unspecified; R00.1 Bradycardia, unspecified; I10 Essential (primary) hypertension; E11.9 Type 2 diabetes mellitus without complications; I65.23 Occlusion and stenosis of bilateral carotid arteries; E78.5 Hyperlipidemia, unspecified; F17.210 Nicotine dependence, cigarettes, uncomplicated; K21.9 Gastro-esophageal reflux disease without esophagitis; E04.2 Nontoxic multinodular goiter; I25.10 Atherosclerotic heart disease of native coronary artery without angina pectoris; Z98.61 Coronary angioplasty status; Z86.73 Personal history of transient ischemic attack (TIA), and cerebral infarction without residual deficits; H53.8 Other visual disturbances; R47.81 Slurred speech
CPT/HCPCS: 36415; 70496-TC; 70498-TC; 70551-TC; 80048-TC; 80061-TC; 80076-TC; 82962-TC; 83735-TC; 84100-TC; 84439-TC; 84443-TC; 84481; 85025-TC; 85610-TC; 85652-TC; 85730-TC; 86592; 86850-TC; 87081-TC; 88304-TC; 88305-TC; 88311-TC; 93307-TC; 93880-TC; 94799-TC; 97001-TC; A4606; A6402; A6403; C1750; C1769; J0690; J1100; J1644; J1650; J1815; J2250; J2270; J2405; J3010; J3475; J3490; J7030; J7050; J7060; Q9967